=== PATIENT | male | born 1980 | race Caucasian/White ===

== ENCOUNTER 2021-08-10 09:22 | Inpatient (IN) | payer BC ==
[2021-08-10] VITALS (14 sets, daily range): BP systolic 92–181; BP diastolic 53–86
[~2021-08-10] VITALS: Ht 193 cm; Wt 164.0 kg
[2021-08-10 10:08] LABS: BASOPHILS # (AUTO) 0.1 X10'3 (0-0.2); BASOPHILS % (AUTO) 0.5 % (0-1); EOSINOPHILS % (AUTO) 0.4 % (0-6); HEMATOCRIT 40.1 % (42.0-52.0); LYMPHOCYTES # (AUTO) 1.2 X10'3 (1.1-4.8); LYMPHOCYTES % (AUTO) 11.8 % (21-51); MEAN CORPUSCULAR HEMOGLOBIN 30.9 PG (27.0-31.0); MEAN CORPUSCULAR HGB CONC 34.9 g/dL (33.0-36.5); MEAN CORPUSCULAR VOLUME 88.6 FL (78-98); MEAN PLATELET VOLUME 9.8 FL (7.4-10.4); MONOCYTES # (AUTO) 0.8 X10'3 (0-0.9); MONOCYTES % (AUTO) 8.1 % (2-12); NEUTROPHILS # (AUTO) 8.1 X10'3 (1.8-7.7); NEUTROPHILS % (AUTO) 79.2 % (42-75); PLATELET COUNT 191 X10'3 (140-440); RED BLOOD COUNT 4.52 X10'6 (4.70-6.10); RED CELL DISTRIBUTION WIDTH 12.6 % (11.5-14.5); WHITE BLOOD COUNT 10.2 X10'3 (4.5-11.0)
[2021-08-10] MEDS ORDERED: morphine 4 MG/ML inj SYRINge IM ONE (10:10)
[2021-08-10] MEDS ORDERED: ondansetron/PF 4mg/2ml inj IV ONE (10:10)
[2021-08-10 10:20] LABS: CLARITY,URINE CLEAR (Clear); COLOR,URINE YELLOW (Yellow); GLUCOSE, URINE NEGATIVE (Neg); KETONES,URINE NEGATIVE (Neg); LEUKOCYTE ESTERASE ,URINE NEGATIVE (Neg); NITRITES, URINE NEGATIVE (Neg); OCCULT BLOOD,URINE NEGATIVE (Neg); PROTEIN,URINE NEGATIVE (Neg); UROBILINOGEN,URINE 0.2 E.U/dL (0.2-1.0)
[2021-08-10 10:21] LABS: UA COLLECTION TYPE URINAL
--- NOTE | 2021-08-10 10:23 | NUR ---
us in room
[2021-08-10 10:28] LABS: ALANINE AMINOTRANSFERASE 90 U/L (12-78); ALBUMIN 3.5 G/DL (3.4-5.0); ALBUMIN/GLOBULIN RATIO 0.8 (1.1-1.5); ALKALINE PHOSPHATASE 58 IU/L (46-116); ANION GAP 8 (8-16); ASPARTATE AMINO TRANSFERASE 28 U/L (10-37); BILIRUBIN,TOTAL 0.8 MG/DL (0.1-1.0); BLOOD UREA NITROGEN 12 MG/DL (7-18); BUN/CREATININE RATIO 12.4 (5.4-32.0); CALCIUM 9.6 MG/DL (8.5-10.1); CHLORIDE 103 MMOL/L (99-107); CREATININE 0.97 MG/DL (0.60-1.10); GLUCOSE 113 MG/DL (70-104); LIPASE 63 U/L (73-393); POTASSIUM 3.9 MMOL/L (3.5-5.1); SODIUM 138 MMOL/L (135-145); TOTAL CARBON DIOXIDE 27.3 MMOL/L (24-32); TOTAL PROTEIN 7.8 G/DL (6.4-8.2); eGFR 85 ML/MIN
[2021-08-10] MEDS ORDERED: iohexol 300mg/ml 100ml inj. ONE (11:17)
[2021-08-10] MEDS ORDERED: normal saline 1000ML IV soln IVB ONE (11:30)
[2021-08-10] MEDS ORDERED: morphine 4 MG/ML inj SYRINge IV ONE (13:00)
[2021-08-10] MEDS ORDERED: NO HOME MEDS (13:57)
[2021-08-10] MEDS ORDERED: potassium CL 10mEq/100ml bag 100 ML IV PRN (14:15)
[2021-08-10] MEDS ORDERED: magnesium Cl slow-release 64mg tablet PO PRN (14:15)
[2021-08-10] MEDS ORDERED: magnesium 4gm in 100ml NS 100 ML IV PRN (14:15)
[2021-08-10] MEDS ORDERED: piperacillin/tazo 3.375gm/50ml 50 ML IV ONE (14:15)
[2021-08-10] MEDS ORDERED: magnesium 2GM in 50ml NS 50 ML IV PRN (14:15)
[2021-08-10] MEDS ORDERED: mag hydrox/Alum hydrox/simeth 30ml oral suspension PO PRN (14:15)
[2021-08-10] MEDS ORDERED: morphine 2 MG/ML inj. syringe IV PRN ×3 (14:15→17:45)
[2021-08-10] MEDS ORDERED: HYDROcodone/acetaminophen 10/325mg tab PO PRN ×2 (14:15→20:55)
[2021-08-10] MEDS ORDERED: HYDROcodone/acetaminophen 5mg/325mg tablet PO PRN (14:15)
[2021-08-10] MEDS ORDERED: ondansetron/PF 4mg/2ml inj IV PRN ×2 (14:15→17:45)
[2021-08-10] MEDS ORDERED: potassium Cl 20 mEq SR tablet PO PRN ×2 (14:15)
[2021-08-10] MEDS ORDERED: acetaminophen 325mg tablet PO PRN ×2 (14:15)
[2021-08-10] MEDS: normal saline 1000ml 1,000 ML IV SCH (14:28)
[2021-08-10] MEDS ORDERED: morphine 4 MG/ML inj SYRINge IV PRN (17:45)
[2021-08-10] MEDS ORDERED: fentaNYL/PF 50MCG/1 ML 2ML syringe IV PRN ×2 (17:45)
[2021-08-10] MEDS ORDERED: ringers solution, lacted 1,000 ML IV SCH (17:45)
[2021-08-10] MEDS ORDERED: hydrALAZINE 20mg/ml inj. IV PRN (17:45)
[2021-08-10] MEDS ORDERED: labetalol 20mg/4ml (5mg/ml) syringe IV PRN (17:45)
[2021-08-10] MEDS ORDERED: INDOCYANINE GREEN 25 MG/10 ML VIAL IV ONE (18:15)
[2021-08-10] MEDS ORDERED: LIDOcaine 2% (20mg/ml) 5ml vial ONE (18:19)
[2021-08-10] MEDS ORDERED: rocuronium 10mg/ml inj IV ONE ×2 (18:19)
[2021-08-10] MEDS ORDERED: propofol inj 20 ML IV ONE (18:19)
[2021-08-10] MEDS ORDERED: desflurane 240ml liquid inh. IH ONE (19:02)
[2021-08-10] MEDS ORDERED: propofol 10mg/ml 20ml vial IV ONE (19:02)
[2021-08-10] MEDS ORDERED: fentaNYL/PF 50MCG/1 ML 2ML syringe ONE ×2 (19:04→19:52)
[2021-08-10] MEDS ORDERED: dexamethasone sod phosphate 4mg/ml inj. ONE (19:04)
[2021-08-10] MEDS ORDERED: MIDAZolam 1 MG/ML 5ML VIAL ONE (19:04)
[2021-08-10] MEDS ORDERED: ondansetron/PF 4mg/2ml inj ONE (19:05)
[2021-08-10] MEDS ORDERED: BUPIVAcaine/PF 2.5mg/ml (0.25%) 10ml vial ONE (19:35)
[2021-08-10] MEDS: docusate sod 100mg capsule PO SCH (19:58)
[2021-08-10] MEDS: K and/or MAG REPLACEMENT MC SCH (19:58)
[2021-08-10] MEDS: heparin, porcine 5000 units/ml vial SQ SCH (19:59)
[2021-08-10] MEDS ORDERED: labetalol 20mg/4ml (5mg/ml) syringe IV ONE (20:29)
[2021-08-10] MEDS ORDERED: glycopyrrolate 0.2mg/ml inj ONE (20:30)
[2021-08-10] MEDS ORDERED: neostigmine methylsulfate 1 MG/ML 10ml vial ONE (20:30)
[2021-08-10] MEDS ORDERED: temazepam 15mg capsule PO PRN (21:00)
--- NOTE | 2021-08-10 21:01 | NUR ---
Received from OR via SURGICAL BED, accompanied by Anesthesiologist DR ZAYAS and report given by Anesthesiolgist. PT PLACED ON O2 AND MONITOR, AROUSE EASILY, S/P LAP. ROBOT ASSTSTED NICOLE, GENERAL ANESTHESIA, PT HAS 4 LARGE BANDAIDS TO ABDOMEN WITH NOELLE DRAIN EXITING RIGHT ABD QUAD (SCANT SERSANGUINOUS DRAINAGE NOTED), ABD SOFT, 20G PIV RIGHT AC, STATES HAS PAIN IN ABD AT 5/10, WILL ADMINISTER PAIN MEDS AND CONT TO ASSESS.
[2021-08-10] MEDS ORDERED: acetaminophen 1,000mg/100ml IV 100 ML IV ONE (21:10)
[2021-08-10] MEDS ORDERED: ketorolac trometh. 30mg/ml inj. IV ONE (21:10)
[2021-08-10] MEDS: ketorolac trometh. 30mg/ml inj. IV PRN (21:26)
--- NOTE | 2021-08-10 21:51 | NUR ---
Report called to receiving nurse. Transferred via SURGICAL BED TO ROOM [address] . Special Issues communicated to receiving nurse.
[2021-08-11] VITALS (7 sets, daily range): BP systolic 93–122; BP diastolic 49–64
[2021-08-11] MEDS: normal saline 1000ml 1,000 ML IV SCH ×2 (00:08→10:15)
[2021-08-11] MEDS: piperacillin/tazo 3.375gm/50ml 50 ML IV SCH ×2 (00:09→08:18)
--- NOTE | 2021-08-11 02:40 | NUR ---
PT ATTEMPTED TO VOID AT MY REQUEST UNSUCCESSFULLY. BLADDER SCANNED FOR < 100 ML.
[2021-08-11] MEDS: ketorolac trometh. 30mg/ml inj. IV PRN ×2 (03:53→10:43)
--- NOTE | 2021-08-11 05:31 | NUR ---
PT ASK TO TRY TO VOID AND THE PATIENT SAID TO ME IN A LITTLE WHILE.
--- NOTE | 2021-08-11 06:27 | NUR ---
Patient in room [facility]. I have received report from Chuy shook and had the opportunity to ask questions and assume patient care.
--- NOTE | 2021-08-11 06:43 | NUR ---
Problems reprioritized. Patient report given, questions answered & plan of care reviewed with [facility]. Addendum: 08/11/21 at 0643 by Addy Cortes RN Amended: Links added.
[2021-08-11 06:45] LABS: BASOPHILS % (AUTO) 0.1 % (0-1); EOSINOPHILS % (AUTO) 0 % (0-6); HEMATOCRIT 37.8 % (42.0-52.0); HEMOGLOBIN 13.2 g/dl (14.0-17.9); LYMPHOCYTES # (AUTO) 0.5 X10'3 (1.1-4.8); LYMPHOCYTES % (AUTO) 5.7 % (21-51); MEAN CORPUSCULAR HEMOGLOBIN 31.2 PG (27.0-31.0); MEAN CORPUSCULAR HGB CONC 34.8 g/dL (33.0-36.5); MEAN CORPUSCULAR VOLUME 89.7 FL (78-98); MEAN PLATELET VOLUME 10.2 FL (7.4-10.4); MONOCYTES # (AUTO) 0.6 X10'3 (0-0.9); MONOCYTES % (AUTO) 6.9 % (2-12); NEUTROPHILS # (AUTO) 8.2 X10'3 (1.8-7.7); NEUTROPHILS % (AUTO) 87.3 % (42-75); PLATELET COUNT 202 X10'3 (140-440); RED BLOOD COUNT 4.21 X10'6 (4.70-6.10); RED CELL DISTRIBUTION WIDTH 12.8 % (11.5-14.5); WHITE BLOOD COUNT 9.4 X10'3 (4.5-11.0)
[2021-08-11 07:04] LABS: ALANINE AMINOTRANSFERASE 89 U/L (12-78); ALBUMIN 3.1 G/DL (3.4-5.0); ALBUMIN/GLOBULIN RATIO 0.8 (1.1-1.5); ALKALINE PHOSPHATASE 54 IU/L (46-116); ANION GAP 9 (8-16); ASPARTATE AMINO TRANSFERASE 36 U/L (10-37); BLOOD UREA NITROGEN 17 MG/DL (7-18); CALCIUM 8.5 MG/DL (8.5-10.1); CHLORIDE 105 MMOL/L (99-107); CHOL/HDL RATIO 4.3 (0.00-4.99); CHOLESTEROL 181 MG/DL (0-200); CREATININE 1.21 MG/DL (0.60-1.10); GLUCOSE 147 MG/DL (70-104); HDL CHOLESTEROL 42 MG/DL (35-60); LDL CHOLESTEROL 119 MG/DL (50-100); POTASSIUM 4.6 MMOL/L (3.5-5.1); SODIUM 141 MMOL/L (135-145); TOTAL CARBON DIOXIDE 26.8 MMOL/L (24-32); TOTAL PROTEIN 6.9 G/DL (6.4-8.2); TRIGLYCERIDES 94 MG/DL (20-135); eGFR 66 ML/MIN
[2021-08-11] MEDS: heparin, porcine 5000 units/ml vial SQ SCH (08:19)
[2021-08-11] MEDS: docusate sod 100mg capsule PO SCH (08:20)
[2021-08-11] MEDS: K and/or MAG REPLACEMENT MC SCH (08:26)
--- NOTE | 2021-08-11 09:57 | NUR ---
Dr Vásquez ok for patient to be discharged this afternoon. Ok to advance patients diet, DC patients NOELLE drain and Follow up with Dr Vásquez office on Wednesday. Primary RN aware and have hospitalist DC patient.
--- NOTE | 2021-08-11 13:23 | NUR ---
called [place] office to confirm that they will arrange pts pain meds and call them in for pts.
--- NOTE | 2021-08-11 13:42 | NUR ---
pt is stable for discharge, iv canula is intact and DC, pt took all belongings with him, wheeled down in a wheel chair and left in a private vehicle. all discharge info went over no further questions.
== END 2021-08-11 13:40 | disposition home or self-care (01) | DRG 418 ==
LOC: ER 09:23 → ED HOLD 14:19 → SUR 3N 16:03
PROVIDERS: ADMIT Internal Medicine; ATTEND Internal Medicine
PROC: 8E0W4CZ Robotic Assisted Procedure of Trunk Region, Percutaneous Endoscopic Approach (ICD-10-PCS; 2021-08-10)
PROC: BW211ZZ Computerized Tomography (CT Scan) of Abdomen and Pelvis using Low Osmolar Contrast (ICD-10-PCS; 2021-08-10)
PROC: 0FT44ZZ Resection of Gallbladder, Percutaneous Endoscopic Approach (ICD-10-PCS; principal; 2021-08-10 19:02)
DX: K80.10 Calculus of gallbladder with chronic cholecystitis without obstruction (principal); Z68.41 Body mass index [BMI] 40.0-44.9, adult; Z20.822 Contact with and (suspected) exposure to COVID-19; E66.9 Obesity, unspecified; R74.8 Abnormal levels of other serum enzymes; K82.8 Other specified diseases of gallbladder; E78.5 Hyperlipidemia, unspecified; Z87.891 Personal history of nicotine dependence; Z72.89 Other problems related to lifestyle
CPT/HCPCS: 96372; 96374; 96375; 99285; Z7506; Z7508; 36415; 74177; 76700; 80053; 80061; 81003; 83605; 83690; 85025; 87040; 87635; 97116; 97161; 97530; A4215; A4618; A7000; G0378; J0131; J1100; J1644; J1885; J2250; J2270; J2405; J2543; J2704; J2710; J3010; J3490; J7030; J7120; Q9967